=== PATIENT | male | born 1930 | race Caucasian/White ===

== ENCOUNTER 2017-07-23 12:50 | Emergency (ER) | payer OTHER ==
[~2017-07-23 12:50] MED LIST: COZAAR25 M1 PO; ESCITALOPRAM OXA5 MG PO; EXELON1.5 MG PO; LINZESS145 MCG PO; METFORMIN1000 MG PO; MULTIPLE VITAM1 EAC2 PO; OLANZAPINE20 MG PO; SEROQUEL 25MG25 MG PO; SIMVASTATIN20 MG PO; TAMSULOSIN HYD0.4 MG PO; VERAPAMIL HCL240 MG PO; VITAMIN B-121000 MC3 PO
--- NOTE | 2017-07-23 13:33 | ED MVC/FALL/TRAUMA COMPLAINT ---
History of Present Illness General Chief Complaint: Fall Stated Complaint: FALL Source: patient, family, old records Exam Limitations: dementia Vital Signs & Intake/Output Vital Signs & Intake/Output Vital Signs Date Time Temp Pulse Resp B/P B/P Pulse O2 O2 Flow FiO2 Mean Ox Delivery Rate 07/23 1603 98.2 79 17 156/88 97 Room Air 07/23 1340 98.2 61 16 117/66 98 Room Air Room Air Allergies Coded Allergies: Sulfa (Sulfonamide Antibiotics) (Severe, UNKNOWN PER PT 05/23/15) ciprofloxacin (HIVES 05/23/15) hydrocortisone (From [facility]) (HIVES 05/23/15) Reconcile Medications Cyanocobalamin (Vitamin B-12) 1,000 MCG TABLET 1 TAB PO DAILY VITAMIN SUPPORT (Reported) Escitalopram Oxalate 5 MG TABLET 1 TAB PO DAILY MENTAL HEALTH (Reported) Losartan Potassium (Cozaar) 25 MG TABLET 1 TAB PO BID HEART (Reported) Multivitamin (Multiple Vitamins) 1 EACH TABLET 1 TAB PO DAILY VITAMIN SUPPORT (Reported) Polyethylene Glycol 3350 (Miralax) 17 GRAM POWD.PACK 1 PAC PO DAILY PRN CONSTIPATION (Reported) dissolve in water Quetiapine Fumarate 25 MG TABLET 1 TAB PO BID MENTAL HEALTH (Reported) Triage Nurses Notes Reviewed? yes Onset: Abrupt Duration: constant Timing: single episode today Severity: moderate Severity Numbers: 5 HPI: Patient is a 86-year-old male with a past medical history of Alzheimer's, hypertension diabetes hyperlipidemia prostate cancer with external beam radiation therapy, benign tubular adenomas, who presents emergency room brought in by family members in which history is limited due to patient having Alzheimer 's dementia however and daughter state that they left the ENT office today patient fell off a curb on the sidewalk falling for striking the right lateral aspect of his head to the pavement or patient also suffered skin abrasions to his fingers. Patient was able to get up with assistance however upon arriving home family members wanted patient to receive treatment at emergency room. Patient denies any headache denies any neck or back pain chest pain abdominal pain or lower extremity pain. Patient was noted to have his baseline gait per family members denies any lower extremity pain Tetanus is unknown. (Justine PRATHER,Von) Past History Travel History Traveled to [place] past 21 day No Medical History Any Pertinent Medical History? see below for history Neurological: dementia Cardiovascular: hypertension, hyperlipidemia Endocrine: diabetes Surgical History Surgical History: appendectomy, hernia repair-inguinal Psychosocial History What is your primary language Pashto Family History Hx Contributory? No (Von Esparza) Review of Systems Review of Systems Constitutional: Reports: no symptoms. Eyes: Reports: no symptoms. Ears, Nose, Throat, Mouth: Reports: no symptoms. Respiratory: Reports: no symptoms. Cardiovascular: Reports: no symptoms. Gastrointestinal/Abdominal: Reports: no symptoms. Genitourinary: Reports: no symptoms. Musculoskeletal: Reports: see HPI. Skin: Reports: see HPI. Neurological/Psychological: Reports: no symptoms. All Other Systems: Reviewed and Negative (Von Esparza) Physical Exam Physical Exam General Appearance: no apparent distress, alert, comfortable Head: evidence of injury Eyes: Bilateral: normal appearance, PERRL, EOMI. Ears, Nose, Throat, Mouth: hearing grossly normal, moist mucous membrane Neck: normal inspection, supple, no midline tenderness, CERVICAL COLLAR INPLACE Respiratory: normal breath sounds, chest non-tender, no respiratory distress Cardiovascular: regular rate/rhythm Peripheral Pulses: 2+ brachial (R) Gastrointestinal: normal bowel sounds, soft, non-tender Extremities: normal range of motion Neurologic/Psych: no motor/sensory deficits, awake, alert, oriented x 3, normal mood/affect Skin: normal color Comments: Bilateral lower extremity full active range of motion nontender to hip knee and ankles Bilateral shoulder elbow and wrist normal inspection nontender full active range of motion Diagram Body: 1) 2 CM SUPERFICIAL SKIN TEAR Nontender full active range of motion with elbow flexion and extension no exposed bone Head: 1) Noted superficial skin abrasions and point tenderness Hands, Palmar: 1) Noted superficial skin abrasion and noted dry blood to distal phalanx 2) Noted superficial skin abrasion and noted dry blood to distal phalanx Core Measures ACS in differential dx? No CVA/TIA Diagnosis No Sepsis Present: No Sepsis Focused Exam Completed? No (Von Esparza) Progress Differential Diagnosis: abd injury, C/T/L spine injury, ext injury, ICH, pelvis injury, pnemothorax, spinal cord injury Plan of Care: Orders Procedure Date/time Status CT HEAD WO IV CONTRAST 07/[address] MAXILLOFACIAL W/O CON 07/[address] CHEST WO IV CONTRAST 07/[address] CERV SPINE WO IV CONTRAST 07/[address] ABD & PELVIS W/O IV CONTRAS 07/23 1340 Active Per history of family members that there is a mechanical fall concern cervical spine collar was in place on arrival After CT scan of cervical spine was resulted no acute process or fractures the collar was removed safely. Patient had normal steady gait, CT scans were resulted no acute injury. Discussed results with patient and family members who were aware Patient's wounds were cleaned sterile water bacitracin bandage was applied. Upon discharge patient looks well, has no questions Discussed disposition plan with Dr. Melvin Diagnostic Imaging: Viewed by Me: Radiology Read, CT Scan. Radiology Impression: no acute abnormality, no fracture Comments: PATIENT: SUBHASH RDZ PRESENT AGE: 86 PATIENT ACCOUNT NO: [id number] : 30 LOCATION: [facility] ORDERING PHYSICIAN: Von PRATHER SERVICE DATE: 07/23/17 EXAM TYPE: CAT - CT ABD & PELVIS W/O IV CONTRAS; CT CHEST WO IV CONTRAST EXAMINATION: CT ABDOMEN AND PELVIS WITHOUT CONTRAST CLINICAL INFORMATION: Dementia. Fall. COMPARISON: CT of the abdomen and pelvis from 05/19/2015. Chest x-ray from 05/27/2014. TECHNIQUE: Multidetector volumetric imaging was performed from the superior aspect of the liver through the pubic symphysis. Sagittal and coronal reformatted images were obtained on the technologist's workstation. DLP: 569 mGy-cm FINDINGS: Chest: The thoracic aorta is normal in caliber with scattered calcification. The heart and pericardium appear unremarkable. There are extensive coronary calcifications and mild calcifications in the region of the mitral annulus and aortic valve. No mediastinal or hilar adenopathy. No axillary adenopathy. No pneumothorax. There are dependent changes in the lungs bilaterally. The central airways are patent. There is mild biapical pleural-parenchymal scarring. There are calcified granulomas seen in the left upper lobe, both lower lobes, and in the right upper lobe peripherally as well. No pleural effusions. No chest wall abnormalities. Abdomen/pelvis: The liver appears unremarkable. The gallbladder is not distended. There is small foci of density in the gallbladder fundus suggesting small stones. No biliary ductal dilatation. The adrenal glands, spleen, and pancreas appear unremarkable. Neither kidney demonstrates hydronephrosis nor nephrolithiasis. There are oval hypoattenuating foci in both kidneys, similar to the prior study, statistically cysts. The bladder is partially distended and unremarkable. No ascites or free air. Loops of small and large bowel appear normal in caliber without surrounding inflammatory change. An appendix is not definitively identified, however there is no stranding in the right abdomen. The aorta is moderately calcified without aneurysmal dilatation. The prostate is enlarged. There is soft tissue thickening along the right inguinal canal. There is noted to have been prior hernia reduction in this region on the prior CT. There are clips in the left inguinal region. No abdominal wall hematoma. The visualized abdominal musculature appears symmetric. OSSEOUS STRUCTURES: No spinal compression deformities. Multilevel spondylosis is redemonstrated. No acute osseous abnormalities are evident. IMPRESSION: No evidence of acute traumatic injury in the chest, abdomen, or pelvis. Cholelithiasis without evidence of cholecystitis. DICTATED BY: Shari Rudolph MD DATE/TIME DICTATED:07/23/171523 OIL EXTRACTOR:CHERY DATE/TIME TRANSCRIBED:07/23/171523 PATIENT: SUBHASH RDZ PRESENT AGE: 86 PATIENT ACCOUNT NO: [id number] : 30 LOCATION: [facility] ORDERING PHYSICIAN: Von PRATHER SERVICE DATE: 07/23/17 EXAM TYPE: CAT - CT CERV SPINE WO IV CONTRAST; CT HEAD WO IV CONTRAST; CT MAXILLOFACIAL W/O CON CT HEAD WITHOUT IV CONTRAST CT CERVICAL SPINE WITHOUT IV CONTRAST CT MAXILLOFACIAL WITHOUT IV CONTRAST INDICATION: Dementia with fall. Head/face strike. COMPARISON: None available. TECHNIQUE: Multidetector CT acquisitions of the head, maxillofacial region, and cervical spine were obtained without IV contrast. Multiplanar reformats were acquired and utilized for image interpretation. FINDINGS: HEAD: Global cerebral volume loss and chronic microangiopathy. There is no intracranial hemorrhage, hydrocephalus, extra-axial surface collection, midline shift, or other herniation pattern. Lawrence to white matter differentiation is diffusely maintained without evidence of an evolved acute territorial infarct. The basilar cisterns are preserved. No significant soft tissue abnormality. No acute osseous abnormality. MAXILLOFACIAL: No acute maxillofacial fractures are appreciated. Small retention cysts within the left maxillary sinus, moderate opacification of the ethmoid air cells associated with polypoid soft tissue extending into the posterior upper nasal cavities. The frontal sinuses are clear. CERVICAL SPINE: Straightening of the cervical lordosis. Moderate disc volume loss at C3-C4, C4-C5, C5-C6, and C6-C7 with endplate osteophytes at these levels. Multilevel hypertrophic facet arthropathy. Mild anterior subluxation of C7 on T1 appears degenerative. There is no acute fracture and there is no acute subluxation. The craniocervical and atlantoaxial articulations are normal. There is no prevertebral soft tissue swelling. Coarse calcification within the left thyroid lobe. Atherosclerotic calcification of the carotid bifurcations bilaterally. Pleural parenchymal scarring at the lung apices. IMPRESSION: 1. No acute intracranial abnormality. Global cerebral volume loss and chronic microangiopathy. 2. No acute osseous abnormality within the cervical spine. Moderate to severe cervical spondylosis. 3. No acute osseous abnormality within the maxillofacial region. Sinonasal polyposis. DICTATED BY: Jose Schwartz MD DATE/TIME DICTATED:07/23/171520 OIL EXTRACTOR:CHERY PATIENT: SUBHASH RDZ PRESENT AGE: 86 PATIENT ACCOUNT NO: [id number] : 30 LOCATION: [facility] ORDERING PHYSICIAN: Von PRATHER SERVICE DATE: 07/23/17 EXAM TYPE: RAD - XRY-HAND, LEFT; XRY-HAND, RIGHT EXAMINATION: XR HAND, RIGHT XR HAND, LEFT CLINICAL INFORMATION: 86-year-old male status post fall. Finger trauma involving distal phalanx, multiple sites COMPARISON: None TECHNIQUE: Right hand, 3 views Left hand, 3 views FINDINGS: Right hand: Bones have normal alignment within the hand and wrist. No acute fracture, subluxation or focal soft tissue swelling. Mild osteoarthritis of the first carpometacarpal joint and of multiple metacarpophalangeal joints. Also, moderate and severe osteoarthritic changes are observed at multiple proximal and distal interphalangeal joints. Left hand: Alignment is normal within the hand and wrist. Mild chondrocalcinosis is observed at the level of the triangular fibrocartilage and lunatotriquetral ligament. Osteoarthritis is mild at the radioscaphoid joint and severe at the first carpometacarpal joint. Moderate and severe osteoarthritic changes are present at multiple interphalangeal joints. 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 No evidence of acute phalangeal injury in the left hand. IMPRESSION: 1. No acute findings in either hand or wrist. 2. 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 DICTATED BY: Rainer Baltazar MD DATE/TIME DICTATED:07/23/171516 OIL EXTRACTOR:CHERY DATE/TIME TRANSCRIBED:07/23/17 (Von Esparza) Departure Departure Disposition: HOME OR SELF CARE Condition: Stable Clinical Impression Primary Impression: Fall Secondary Impressions: Minor head injury, Skin tear Referrals: Eulalio Rasmussen MD (PCP/Family) Additional Instructions: As discussed apply bacitracin to the right elbow and fingertips once a day for the FOLLOWING 4 days in the area open to improve healing if you NOTE signs of infection return to emergency room follow-up with primary care doctor as directed Departure Forms: Customer Survey General Discharge Information (Von Esparza) PA/PROJECT MANAGER/DESIGN MANAGER Co-Sign Statement Statement: ED Attending supervision documentation- [] I saw and evaluated the patient. I have also reviewed all the pertinent lab results and diagnostic results. I agree with the findings and the plan of care as documented in the PA's/PROJECT MANAGER/DESIGN MANAGER's documentation. [x] I have reviewed the ED Record and agree with the PA's/PROJECT MANAGER/DESIGN MANAGER's documentation. [] Additions or exceptions (if any) to the PAs/PROJECT MANAGER/DESIGN MANAGER's note and plan are summarized below: [] (Lion Melvin DO)
[2017-07-23] MEDS ORDERED: QUETIAPINE FUMA25 M1 PO (14:41)
[2017-07-23] MEDS ORDERED: MIRALAX17 G1 PO (14:42)
--- NOTE | 2017-07-23 15:25 | RADIOLOGY REPORT ---
EXAMINATION: XR HAND, RIGHT XR HAND, LEFT CLINICAL INFORMATION: 86-year-old male status post fall. Finger trauma involving distal phalanx, multiple sites COMPARISON: None TECHNIQUE: Right hand, 3 views Left hand, 3 views FINDINGS: Right hand: Bones have normal alignment within the hand and wrist. No acute fracture, subluxation or focal soft tissue swelling. Mild osteoarthritis of the first carpometacarpal joint and of multiple metacarpophalangeal joints. Also, moderate and severe osteoarthritic changes are observed at multiple proximal and distal interphalangeal joints. Left hand: Alignment is normal within the hand and wrist. Mild chondrocalcinosis is observed at the level of the triangular fibrocartilage and lunatotriquetral ligament. Osteoarthritis is mild at the radioscaphoid joint and severe at the first carpometacarpal joint. Moderate and severe osteoarthritic changes are present at multiple interphalangeal joints. 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 No evidence of acute phalangeal injury in the left hand. IMPRESSION: 1. No acute findings in either hand or wrist. 2. 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
--- NOTE | 2017-07-23 15:41 | CT SCAN REPORT ---
EXAMINATION: CT ABDOMEN AND PELVIS WITHOUT CONTRAST CLINICAL INFORMATION: Dementia. Fall. COMPARISON: CT of the abdomen and pelvis from 05/19/2015. Chest x-ray from 05/27/2014. TECHNIQUE: Multidetector volumetric imaging was performed from the superior aspect of the liver through the pubic symphysis. Sagittal and coronal reformatted images were obtained on the technologist's workstation. DLP: 569 mGy-cm FINDINGS: Chest: The thoracic aorta is normal in caliber with scattered calcification. The heart and pericardium appear unremarkable. There are extensive coronary calcifications and mild calcifications in the region of the mitral annulus and aortic valve. No mediastinal or hilar adenopathy. No axillary adenopathy. No pneumothorax. There are dependent changes in the lungs bilaterally. The central airways are patent. There is mild biapical pleural-parenchymal scarring. There are calcified granulomas seen in the left upper lobe, both lower lobes, and in the right upper lobe peripherally as well. No pleural effusions. No chest wall abnormalities. Abdomen/pelvis: The liver appears unremarkable. The gallbladder is not distended. There is small foci of density in the gallbladder fundus suggesting small stones. No biliary ductal dilatation. The adrenal glands, spleen, and pancreas appear unremarkable. Neither kidney demonstrates hydronephrosis nor nephrolithiasis. There are oval hypoattenuating foci in both kidneys, similar to the prior study, statistically cysts. The bladder is partially distended and unremarkable. No ascites or free air. Loops of small and large bowel appear normal in caliber without surrounding inflammatory change. An appendix is not definitively identified, however there is no stranding in the right abdomen. The aorta is moderately calcified without aneurysmal dilatation. The prostate is enlarged. There is soft tissue thickening along the right inguinal canal. There is noted to have been prior hernia reduction in this region on the prior CT. There are clips in the left inguinal region. No abdominal wall hematoma. The visualized abdominal musculature appears symmetric. OSSEOUS STRUCTURES: No spinal compression deformities. Multilevel spondylosis is redemonstrated. No acute osseous abnormalities are evident. IMPRESSION: No evidence of acute traumatic injury in the chest, abdomen, or pelvis. Cholelithiasis without evidence of cholecystitis.
--- NOTE | 2017-07-23 15:43 | CT SCAN REPORT ---
CT HEAD WITHOUT IV CONTRAST CT CERVICAL SPINE WITHOUT IV CONTRAST CT MAXILLOFACIAL WITHOUT IV CONTRAST INDICATION: Dementia with fall. Head/face strike. COMPARISON: None available. TECHNIQUE: Multidetector CT acquisitions of the head, maxillofacial region, and cervical spine were obtained without IV contrast. Multiplanar reformats were acquired and utilized for image interpretation. FINDINGS: HEAD: Global cerebral volume loss and chronic microangiopathy. There is no intracranial hemorrhage, hydrocephalus, extra-axial surface collection, midline shift, or other herniation pattern. Lawrence to white matter differentiation is diffusely maintained without evidence of an evolved acute territorial infarct. The basilar cisterns are preserved. No significant soft tissue abnormality. No acute osseous abnormality. MAXILLOFACIAL: No acute maxillofacial fractures are appreciated. Small retention cysts within the left maxillary sinus, moderate opacification of the ethmoid air cells associated with polypoid soft tissue extending into the posterior upper nasal cavities. The frontal sinuses are clear. CERVICAL SPINE: Straightening of the cervical lordosis. Moderate disc volume loss at C3-C4, C4-C5, C5-C6, and C6-C7 with endplate osteophytes at these levels. Multilevel hypertrophic facet arthropathy. Mild anterior subluxation of C7 on T1 appears degenerative. There is no acute fracture and there is no acute subluxation. The craniocervical and atlantoaxial articulations are normal. There is no prevertebral soft tissue swelling. Coarse calcification within the left thyroid lobe. Atherosclerotic calcification of the carotid bifurcations bilaterally. Pleural parenchymal scarring at the lung apices. IMPRESSION: 1. No acute intracranial abnormality. Global cerebral volume loss and chronic microangiopathy. 2. No acute osseous abnormality within the cervical spine. Moderate to severe cervical spondylosis. 3. No acute osseous abnormality within the maxillofacial region. Sinonasal polyposis.
[2017-07-23 16:03] VITALS: BP 156/88
== END 2017-07-23 16:17 ==
LOC: ERH 12:50
DX: S51.019A Laceration without foreign body of unspecified elbow, initial encounter (principal); S09.90XA Unspecified injury of head, initial encounter; W19.XXXA Unspecified fall, initial encounter; Y92.248 Other public administrative building as the place of occurrence of the external cause; Y93.9 Activity, unspecified
CPT/HCPCS: 73130-LT; 73130-RT; 74176; 90471; 90714